=== PATIENT | male | born 1975 | race African-American/Black ===

== ENCOUNTER → 2019-06-25 | Outpatient (CLI) | payer BC | END | disposition home or self-care (01) | LOC: RAD 11:37 | PROVIDERS: ATTEND Internal Medicine Rheumatology | DX: M47.817 Spondylosis without myelopathy or radiculopathy, lumbosacral region (principal); M25.78 Osteophyte, vertebrae; M85.88 Other specified disorders of bone density and structure, other site; M85.841 Other specified disorders of bone density and structure, right hand; M13.0 Polyarthritis, unspecified | CPT/HCPCS: 72100; 72170; 73110; 73130; 73562; 73610; 73630 ==